=== PATIENT | male | born 1940 | race Caucasian/White ===

== ENCOUNTER → 2023-08-01 11:18 | Outpatient (REF) | payer MEDICARE, BC, SELFPAY ==
[2023-08-01 12:28] LABS: Blood Urea Nitrogen 13 mg/dl (9-20); Calcium 9.1 mg/dl (8.4-10.2); Carbon Dioxide 31 mmol/L (22-30); Chloride 98 mmol/L (98-107); Glucose 201 mg/dl (70-99); Potassium 3.9 mmol/L (3.5-5.1); Sodium 133 mmol/L (135-145); eGFR > 60.00
[2023-08-01 13:11] LABS: Glycohemoglobin (HgbA1c) 8.7 % (4.0-5.6)
== END ==
LOC: OLABN 11:18
PROVIDERS: ATTENDING PHYSICIAN Student in an Organized Health Care Education/Training Program
DX: E11.65 Type 2 diabetes mellitus with hyperglycemia (principal)
CPT/HCPCS: 36415; 80048; 83036

== ENCOUNTER → 2024-01-24 12:07 | Outpatient (REF) | payer MEDICARE, BC, SELFPAY ==
[2024-01-25 09:08] LABS: Glycohemoglobin (HgbA1c) 10.5 % (4.0-5.6)
== END ==
LOC: OLABN 12:07
PROVIDERS: ATTENDING PHYSICIAN Student in an Organized Health Care Education/Training Program
DX: E11.65 Type 2 diabetes mellitus with hyperglycemia (principal)
CPT/HCPCS: 36415; 83036

== ENCOUNTER → 2024-03-30 11:42 | Outpatient (REF) | payer MEDICARE, BC, SELFPAY ==
[2024-03-30 13:10] LABS: Urine Albumin 2+ (Neg - Trace); Urine Bilirubin Negative (Negative); Urine Character Very Cloudy (Clear); Urine Color Amber; Urine Glucose 3+ (Negative); Urine Ketone 1+ (Negative); Urine Leukocyte 2+ (Negative); Urine Nitrite Positive (Negative); Urine Occult Blood 4+ (Negative); Urine Specific Gravity 1.015 (<1.030); Urine Urobilinogen Negative (Neg - 1+)
[2024-03-30 13:23] LABS: Urine Bacteria Many (Negative); Urine Red Blood Cell 30-40 /HPF (0-2); Urine White Cell 60-70 /HPF (0-5)
== END ==
LOC: OLABN 11:42
PROVIDERS: ATTENDING PHYSICIAN Student in an Organized Health Care Education/Training Program
DX: R30.9 Painful micturition, unspecified (principal)
CPT/HCPCS: 81003; 81015; 87077; 87086; 87186

== ENCOUNTER 2024-04-01 21:21 | Inpatient (IN) | payer MEDICARE, BC, SELFPAY ==
[2024-04-01] VITALS (9 sets, daily range): BP systolic 98–142; BP diastolic 64–76
[2024-04-01 19:18] LABS: % Basophils 0.8 % (0-2); % Immature Granulocytes 0.3 % (0-0.5); % Lymphocytes 8.8 % (20.5-51.1); % Monocytes 6.5 % (1.7-9.3); % Neutrophils 81.6 % (42.2-75.2); Absolute Basophils 0.2 10^3/uL (0-0.2); Absolute Eosinophils 0.4 10^3/uL (0-0.7); Absolute Immature Granulocytes 0.1 10^3/uL (0-0.05); Absolute Lymphocytes 1.9 10^3/uL (1.2-3.4); Absolute Monocytes 1.4 10^3/uL (0.1-0.6); Absolute Neutrophils 17.3 10^3/uL (1.4-6.5); Hematocrit 44.4 % (39.0-52.0); Hemoglobin 14.3 g/dL (13.0-18.0); Mean Corp Hgb Conc. 32.2 g/dL (33.0-37.0); Mean Corpuscular Hgb 28.1 pg (27.0-31.0); Mean Corpuscular Volume 87.4 fL (80.0-94.0); Mean Platelet Volume 10.2 fL (7.4-10.4); Nucleated Red Blood Cells % 0 % (-); Platelet Count 520 10^3/uL (130-400); Red Blood Cell Count 5.08 10^6/uL (4.70-6.10); Red Cell Dist. Width 15.4 % (11.5-14.5); White Blood Cell Count 21.2 10^3/uL (4.8-10.8)
[2024-04-01] MEDS: NSS 1700 ML IV (19:18)
[2024-04-01] MEDS: TYLENOL/FEVERALL 650 MG RECTAL (19:20)
--- NOTE | 2024-04-01 19:22 | ED.GENMED ---
History of Present Illness
<Maria C Shannon, EXECUTIVE ASSISTANT TO PRESIDENT - Last Filed: 04/01/24 21:43>
General
Chief Complaint: Fever
Source: spouse, family and intermediate records
Exam Limitations: clinical condition and altered mental status
Time Seen by Provider: 04/01/24 19:09
History of Present Illness
History of Present Illness:
83 yo male from [facility] for change in mental state and inability to take his po antibiotics for his UTI. Pt w h/o dementia, IDDM, NH records state his urine culture came back positive for <100,000 e coli and order for Nitrofurantoin 100 BID
given but staff unable to give due to significant change in mental state/lethargy.
Pt presents lethargic and unable to give history
Past History
<Maria C Shannon, EXECUTIVE ASSISTANT TO PRESIDENT - Last Filed: 04/01/24 21:43>
Past History
ED Past Medical History: HTN, NIDDM, Seizures and Other (Dementia)
ED Past Surgical History: Appendectomy and Other
Social History
Tobacco: Non-smoker
Alcohol: None
Personal:
Living: intermediate
Employment: Retired
Review of Systems
<Maria C Shannon, EXECUTIVE ASSISTANT TO PRESIDENT - Last Filed: 04/01/24 21:43>
Review of Systems
Allergies reviewed?: Yes
Unable to obtain full review of systems at this time due to: due to acuity
Other source history: family and intermediate
All Other Systems: ROS reviewed and negative except as documented in HPI and ROS
Constitutional: Reports fever
Respiratory: Denies trouble breathing
ABD/GI: Denies diarrhea
: Reports other (UTI)
Musculoskeletal: Denies edema
Skin: Reports no symptoms
Phy Exam
<Maria C Shannon, EXECUTIVE ASSISTANT TO PRESIDENT - Last Filed: 04/01/24 21:43>
Physical Exam
Physical Exam:
GENERAL: Lethargic, unable to give information.
CONSTITUTIONAL: Temp 102.7 R
EYES: PERRL, conjunctivae normal
ENMT: dry mucus membranes
RESPIRATORY: Regular respirations, nonlabored, lungs clear. Coarse junky cough, upper airway gurgling
CARDIOVASCULAR: Regular rate and rhythm, no murmurs, no rubs.
GI: Soft, nontender, normal BS
MUSCULOSKELETAL: Well perfused. No edema
SKIN: Warm, dry, pale
PSYCH:Lethargic. Non verbal, moaning
NEUROLOGIC: Lethargic, does not follow commands, winces and moans with straight catheterization
Sepsis
<Maria C Shannon, EXECUTIVE ASSISTANT TO PRESIDENT - Last Filed: 04/01/24 21:43>
Sepsis Screening
Sepsis Assessment: Sepsis
Sepsis Screen
Sepsis Screen: Sepsis
Date: 04/01/24
Time: 21:42
Course
<Maria C Shannon, EXECUTIVE ASSISTANT TO PRESIDENT - Last Filed: 04/01/24 21:43>
Orders/Labs/Results
Orders:
Orders
04/01/24 19:06
EKG [Electrocardiogram (*1)] Urgent
Reason for Study: Tachycardia
EKG- Treatment ONCE
Urinalysis Reflex To Culture Urgent
Date Specimen was Collected: 04/01/24
Time Specimen was Collected: 19:06
04/01/24 19:09
Complete Blood Count/With Diff Urgent
Comprehensive Metabolic Panel Urgent
Lactic Acid Urgent
04/01/24 19:10
Acetaminophen [Tylenol/Feverall] 650 mg RECTAL NOW STA
04/01/24 19:11
0.9% Sodium Chloride 1000 ml [Nss] 1,700 ml IV NOW STA
04/01/24 19:13
CR Chest Portable - 1 View Urgent
Comment:
Reason For Exam: fever, tachy, change in MS
Reason Study Needs to be Portable: Patient Unstable
04/01/24 19:35
Blood Culture Urgent
MAIRA Source: Blood/Venous
Specimen Description:
Blood Culture Urgent
MAIRA Source: Blood/Venous
Specimen Description:
04/01/24 19:43
CefTRIAXone [Rocephin] 1,000 mg IV NOW STA
04/01/24 20:04
Bedside Glucose- Treatment Q1H
IV Insert/Care/Rem.- Treatment PRN
Insulin Human Regular [Novolin R] 6 units IV NOW STA
04/01/24 20:07
Bedside Glucose- Treatment Q1H
IV Insert/Care/Rem.- Treatment PRN
Reg Insulin 100 Units/100 ml [Novolin R Insulin Infusion] 100 units in 100 ml IV NOW
04/01/24 20:34
BHB [B-Hydroxybutyrate] Urgent
Basic Metabolic Panel Q2H
04/01/24 20:39
Add On- LAB Urgent
Tests Added?: B-hydroxy
04/01/24 20:58
Admit/Transfer Patient As Directed
Co-Sign Provider:
Level of Care: Inpatient admission
Assign to:: ICU
Physician / Group: htay
Diagnosis: DKA, HHC, TME, Hyperkae,ia, Hi AG MA, Sepsis
Reason for Hospitalization: DKA plus hyperosmolar hyprglycemic crisis
Hi AG MA @ 24
Hyperkalemia due to sever memetabolic acidosis
Svere hypernatremia with FWD 3.5 L
Mahad Sr Osm 362
POS hypoactive TME 2/2 to DKA, HHC and sepsis due to UTI
Expected length of stay greater than two midnights?: Yes
ELOS- Estimated Length of Stay in days: 5
I certify the patient meets the requirements for IP care: Yes
04/01/24 21:00
Code Status As Directed
Resuscitation Status: Do not resuscitate
Based on pt advanced directive or healthcare POA form: Yes
DNR Bracelet Application ONCE
04/01/24 22:00
Flush (0.9% Sodium Chloride) [Flush (Nss)] See Dose Instructions IV PER PROTOCOL
04/02/24 00:15
Basic Metabolic Panel Q2H
Abnormal Lab Results
04/01/24 04/01/24 04/01/24
19:09 20:34 21:06
WBC 21.2 H 10^3/uL
(4.8-10.8)
MCHC 32.2 L g/dL
(33.0-37.0)
RDW 15.4 H %
(11.5-14.5)
Plt Count 520 H 10^3/uL
(130-400)
Abs Immat Gran (auto) 0.1 H 10^3/uL
(0-0.05)
Absolute Neuts (auto) 17.3 H 10^3/uL
(1.4-6.5)
Absolute Monos (auto) 1.4 H 10^3/uL
(0.1-0.6)
Neutrophils % 81.6 H %
(42.2-75.2)
Lymphocytes % 8.8 L %
(20.5-51.1)
Sodium 157 H mmol/L 155 H mmol/L
(135-145) (135-145)
Potassium 5.8 H mmol/L
(3.5-5.1)
Chloride 113 H mmol/L 119 H mmol/L
(98-107) (98-107)
Carbon Dioxide 18 L mmol/L 17 L mmol/L
(22-30) (22-30)
BUN 60 H mg/dl 51 H mg/dl
(9-20) (9-20)
Glucose 477 H* mg/dl 401 H mg/dl
(70-99) (70-99)
Calcium 7.9 L D mg/dl
(8.4-10.2)
B-Hydroxybutyrate 3.83 H mmol/L
(0.02-0.27)
POC Glucose 381 H mg/dl
(70-99)
04/01/24 19:09
04/01/24 20:34
Vital Signs
Initial and Last Documented VS:
Initial Vital Signs
Temp Pulse Resp BP Pulse Ox
102.7 F H 130 17 137/73 98
04/01/24 18:55 04/01/24 18:55 04/01/24 18:55 04/01/24 18:55 04/01/24 18:55
Last Documented Vital Signs
Temp Pulse Resp BP Pulse Ox
102.7 F H 120 16 132/76 97
04/01/24 18:55 04/01/24 20:15 04/01/24 20:15 04/01/24 20:00 04/01/24 20:15
<Connie Luna MD - Last Filed: 04/01/24 20:19>
Orders/Labs/Results
Orders:
Orders
04/01/24 19:06
EKG [Electrocardiogram (*1)] Urgent
Reason for Study: Tachycardia
EKG- Treatment ONCE
Urinalysis Reflex To Culture Urgent
Date Specimen was Collected: 04/01/24
Time Specimen was Collected: 19:06
04/01/24 19:09
Complete Blood Count/With Diff Urgent
Comprehensive Metabolic Panel Urgent
Lactic Acid Urgent
04/01/24 19:10
Acetaminophen [Tylenol/Feverall] 650 mg RECTAL NOW STA
04/01/24 19:11
0.9% Sodium Chloride 1000 ml [Nss] 1,700 ml IV NOW STA
04/01/24 19:13
CR Chest Portable - 1 View Urgent
Comment:
Reason For Exam: fever, tachy, change in MS
Reason Study Needs to be Portable: Patient Unstable
04/01/24 19:35
Blood Culture Urgent
MAIRA Source: Blood/Venous
Specimen Description:
Blood Culture Urgent
MAIRA Source: Blood/Venous
Specimen Description:
04/01/24 19:43
CefTRIAXone [Rocephin] 1,000 mg IV NOW STA
04/01/24 20:04
Bedside Glucose- Treatment Q1H
IV Insert/Care/Rem.- Treatment PRN
Insulin Human Regular [Novolin R] 6 units IV NOW STA
04/01/24 20:07
Bedside Glucose- Treatment Q1H
IV Insert/Care/Rem.- Treatment PRN
Reg Insulin 100 Units/100 ml [Novolin R Insulin Infusion] 100 units in 100 ml IV NOW
04/01/24 20:34
BHB [B-Hydroxybutyrate] Urgent
Basic Metabolic Panel Q2H
04/01/24 20:39
Add On- LAB Urgent
Tests Added?: B-hydroxy
04/01/24 20:58
Admit/Transfer Patient As Directed
Co-Sign Provider:
Level of Care: Inpatient admission
Assign to:: ICU
Physician / Group: htay
Diagnosis: DKA, HHC, TME, Hyperkae,ia, Hi AG MA, Sepsis
Reason for Hospitalization: DKA plus hyperosmolar hyprglycemic crisis
Hi AG MA @ 24
Hyperkalemia due to sever memetabolic acidosis
Svere hypernatremia with FWD 3.5 L
Mahad Sr Osm 362
POS hypoactive TME 2/2 to DKA, HHC and sepsis due to UTI
Expected length of stay greater than two midnights?: Yes
ELOS- Estimated Length of Stay in days: 5
I certify the patient meets the requirements for IP care: Yes
04/01/24 21:00
Code Status As Directed
Resuscitation Status: Do not resuscitate
Based on pt advanced directive or healthcare POA form: Yes
DNR Bracelet Application ONCE
04/01/24 22:00
Flush (0.9% Sodium Chloride) [Flush (Nss)] See Dose Instructions IV PER PROTOCOL
04/02/24 00:15
Basic Metabolic Panel Q2H
Abnormal Lab Results
04/01/24 04/01/24 04/01/24
19:09 20:34 21:06
WBC 21.2 H 10^3/uL
(4.8-10.8)
MCHC 32.2 L g/dL
(33.0-37.0)
RDW 15.4 H %
(11.5-14.5)
Plt Count 520 H 10^3/uL
(130-400)
Abs Immat Gran (auto) 0.1 H 10^3/uL
(0-0.05)
Absolute Neuts (auto) 17.3 H 10^3/uL
(1.4-6.5)
Absolute Monos (auto) 1.4 H 10^3/uL
(0.1-0.6)
Neutrophils % 81.6 H %
(42.2-75.2)
Lymphocytes % 8.8 L %
(20.5-51.1)
Sodium 157 H mmol/L 155 H mmol/L
(135-145) (135-145)
Potassium 5.8 H mmol/L
(3.5-5.1)
Chloride 113 H mmol/L 119 H mmol/L
(98-107) (98-107)
Carbon Dioxide 18 L mmol/L 17 L mmol/L
(22-30) (22-30)
BUN 60 H mg/dl 51 H mg/dl
(9-20) (9-20)
Glucose 477 H* mg/dl 401 H mg/dl
(70-99) (70-99)
Calcium 7.9 L D mg/dl
(8.4-10.2)
B-Hydroxybutyrate 3.83 H mmol/L
(0.02-0.27)
POC Glucose 381 H mg/dl
(70-99)
04/01/24 19:09
04/01/24 20:34
Vital Signs
Initial and Last Documented VS:
Initial Vital Signs
Temp Pulse Resp BP Pulse Ox
102.7 F H 130 17 137/73 98
04/01/24 18:55 04/01/24 18:55 04/01/24 18:55 04/01/24 18:55 04/01/24 18:55
Last Documented Vital Signs
Temp Pulse Resp BP Pulse Ox
102.7 F H 120 16 132/76 97
04/01/24 18:55 04/01/24 20:15 04/01/24 20:15 04/01/24 20:00 04/01/24 20:15
<Maria C Shannon, EXECUTIVE ASSISTANT TO PRESIDENT - Last Filed: 04/01/24 21:43>
MDM/Problems Addressed
Differential Diagnosis Includes:
urosepsis, DKA, HHNK
MDM/Problems Addressed:
83 yo male from [facility] for change in mental state and inability to take his po antibiotics for his UTI. Pt w h/o dementia, IDDM, [place] records state his urine culture came back positive for <100,000 e coli and order for Nitrofurantoin 100 BID
given but staff unable to give due to significant change in mental state/lethargy.
Pt presents lethargic and unable to give history
arrives, she is informed that he is septic and states she would like IV fluids and antibiotics as needed. She rescinded the DNR at [facility] but during this admission she would like Hospice consult and wants pt to be DNR.
EKG: sinus tachycardia
7:45 p.m.
CBC: WBC 21.2 w elevated neutrophils
CMP: Na 157, K+ 5.8, Cl 113, Bicarb 18, BUN 60, Glucose 477
Anion Gap 26
Lactic 1.8
Insulin and insulin drip ordered (discussed with and she agrees)
8:20 p.m.
Critical care statement: A total of 40 minutes of critical care time was provided for this patient. This includes management of unstable vital signs, evaluation of the patient at bedside, reviewing the patient's pertinent medical records, discussion
with consultants, review of old EKGs and review of pertinent medical records. This time with separate from time utilized to perform the aforementioned documented procedures
Plan: Admit to Hospitalist: DKA, Urosepsis. Hospice Consult, DNR
Hospitalist notified of admission
Chronic conditions affecting care: DM
<Maria C Shannon NP - Last Filed: 04/01/24 21:43>
*Pulse Oximetry
Patient hypoxic: no
Comment: 98% RA
*EKG
EKG Intrepretation Date: 04/01/24
Interpretation: abnormal
Heart Rate: 125
Rate: tachycardiac
Rhythm: sinus
Hays: normal axis
Interval: normal interval
QRS Pattern: normal QRS
Ischemia: no ischemia
*Critical Care Note
Total Time (30-74mins, 75-104mins- exclusive of procedures): Not Applicable
ED Attending Note
<Maria C Shannon NP - Last Filed: 04/01/24 21:43>
-
Portions of this chart may have been created with voice recognition software.� Occasional wrong word or��sound alike� substitutions may have occurred due to the inherent limitations of voice recognition software.
<Connie Luna MD - Last Filed: 04/01/24 20:19>
ED Attending Note
Patient seen and examined by attending physician: Yes
I performed the substantive portion of visit, reviewed & personally made and approve the management plan that is documented in note by myself or DANIEL.: Yes
ED Attending Note:
82 yo male presents from me with increased lethargy. hx very limited from pt, moaning, moderately responsive. On exam, ketotic breath noted, tachypnea, tachycardia but RRR, scattered rhonchi on exam. Abd soft and nontender. Findings c/w
urosepsis + DKA...insulin gtt, abx, ivf, etc. Family aware of severity of illness.
Discharge Plan
Departure
Patient Disposition: Admit
Date of Disposition: 04/01/24
Time of Disposition: 20:13
Admit to: ICU
Presentation/result/management discussed w/ accepting MD/DO: Hospitalist
Condition: Critical
Discharge Problem:
Sepsis, Acute UTI (urinary tract infection), DKA (diabetic ketoacidosis)
Interventions
Interventions:
*Risk Screen - Suicide Last Done: 04/01/24 18:55
*General Assessment Last Done: 04/01/24 18:55
*Neglect/Abuse Screening Last Done: 04/01/24 18:55
ED- Fall Risk Assessment Last Done: 04/01/24 18:55
*ED COVID-19 Vaccine History Last Done: 04/01/24 18:55
ED- Neurological Assessment Last Done: 04/01/24 19:39
ED-Skin Assessment Last Done: 04/01/24 19:39
[2024-04-01 19:39] LABS: Lactic Acid 1.8 mmol/L (0.7-2.0)
[2024-04-01 19:43] LABS: ALT (SGPT) 17 U/L (0-50); AST (SGOT) 18 U/L (17-59); Albumin 4.2 g/dl (3.5-5.0); Alkaline Phosphatase 110 U/L (38-126); Blood Urea Nitrogen 60 mg/dl (9-20); Calcium 9.7 mg/dl (8.4-10.2); Carbon Dioxide 18 mmol/L (22-30); Chloride 113 mmol/L (98-107); Glucose 477 mg/dl (70-99); Potassium 5.8 mmol/L (3.5-5.1); Sodium 157 mmol/L (135-145); Total Bilirubin 0.4 mg/dl (0.2-1.3); Total Protein 7.2 g/dl (6.3-8.2); eGFR > 60.00
[2024-04-01] MEDS: ROCEPHIN 1000 MG IV (19:48)
--- NOTE | 2024-04-01 20:53 | HPS.HSE ---
Family Physician
-
Family Physician: Lucio Dietrich DO
Chief Complaint
-
AMS
History of Present Illness
I could not get any information from the patient as
Information gathered by chart review and speaking with the ER staff.
HPI
83M [place] NH Res HX T2DM Dementia, Sz, seen at ER for AMS and unable to take PO ABx for UTI.
[facility] records : POS UCx for for <100,000 E Coli and order for Nitrofurantoin
Medical History
Past Medical History
Past Medical History: Reports HTN, Hypercholesterolemia, NIDDM, Seizures and Psychiatric
Past Surgical History: Reports Appendectomy
Social History
Tobacco: Non-smoker
Alcohol: None
Living: Jail
Family History
Family History: Not pertinent
Allergies / Home Medications
Allergies reflects when Allergies were last updated in [employer].
Home Medications with original date entered in [employer]
Allergy/Medication List:
Allergies
Allergy/AdvReac Type Severity Reaction Status Date / Time
Sulfa (Sulfonamide Allergy Unknown Verified 04/01/24 19:46
Antibiotics)
Home Medications
atorvastatin 10 mg tablet 20 mg PO QPM 10/31/21
metformin 1,000 mg tablet 1,000 mg PO BID 10/31/21
primidone 250 mg tablet 250 mg PO BID 10/31/21
sitagliptin phosphate 50 mg tablet (Januvia) 100 mg PO DAILY 10/31/21
acetaminophen 325 mg tablet (Tylenol) 650 mg PO HS 04/01/24
acetaminophen 325 mg tablet (Tylenol) 650 mg PO Q4HPRN PRN mild pain 04/01/24
bisacodyl 10 mg rectal suppository (Dulcolax (bisacodyl)) 10 mg GA [id number] PRN if no bm aftr mom 04/01/24
fexofenadine 180 mg tablet 180 mg PO DAILY 04/01/24
insulin glargine 100 unit/mL (3 mL) subcutaneous pen (Lantus Solostar U-100 Insulin) 5 unit SC HS 04/01/24
magnesium hydroxide 400 mg/5 mL oral suspension (Milk of Magnesia) 2,400 mg PO HSPRN PRN constipation 04/01/24
melatonin 3 mg tablet 6 mg PO HS 04/01/24
nitrofurantoin monohydrate/macrocrystals 100 mg capsule (Macrobid) 100 mg PO BID 04/01/24
polyethylene glycol 3350 17 gram oral powder packet (Miralax) 17 g PO DAILY 04/01/24
sennosides 8.6 mg-docusate sodium 50 mg tablet (Senna Plus) 2 tab-cap PO HS 04/01/24
vitamins A,C,C-ldvr-czmbfj 2,148 mcg-113 mg-45 mg-17.4 mg tablet (PreserVision AREDS) 1 tab PO BID 04/01/24
Review of Systems
-
Constitutional: Reports See HPI
EENT: Reports No Symptoms
Respiratory: Reports No Symptoms
Cardiac: Reports No Symptoms
Abdomen/GI: Reports No Symptoms
: Reports No Symptoms
Musculoskeletal: Reports No Symptoms
Skin: Reports No Symptoms
Neurological: Reports See HPI
Endocrine: Reports No Symptoms
Hematologic/Lymphatic: Reports No Symptoms
Psych: Reports No Symptoms
Physical Exam
Vital Signs
Vital Signs
Temp Pulse Resp BP Pulse Ox
102.7 F H 120 16 132/76 97
04/01/24 18:55 04/01/24 20:15 04/01/24 20:15 04/01/24 20:00 04/01/24 20:15
Physical Exam
General: No Apparent Distress
HEENT: NormoCephalic and Atraumatic
Respiratory: Clear
Cardiac: S1/S2, Regular Rhythm and Tachycardia; No Murmur or Rub
GI: Soft, Non Tender, Non Distended and Normal Bowel Sounds; No Organomegaly
Rectal: Deferred by Provider
Musculoskeletal: No Clubbing, No Cyanosis and No Edema
Skin: No Rash
Neuro: Nonfocal/grossly intact
Laboratory Results
-
04/01/24 19:09
04/01/24 22:15
Laboratory Results
Lactic Acid 1.8 mmol/L (0.7-2.0) 04/01/24 19:09
Total Bilirubin 0.4 mg/dl (0.2-1.3) 04/01/24 19:09
AST 18 U/L (17-59) 04/01/24 19:09
ALT 17 U/L (0-50) 04/01/24 19:09
Alkaline Phosphatase 110 U/L (38-126) 04/01/24 19:09
Data Reviewed
-
Diagnostic Radiology: Report Reviewed by me
Lab Data: Labs Reviewed by me
Impression/Plan
-
Data
WCC 21
Na 157
Cl 113
HCO3 18
BUN 60
Cr 1.1 eGFR > 60
BG 477
LA 1.8
Ca 9.7
nl LFTs
BCx 2 sent
CXR: Moderate elevation of the left hemidiaphragm. Stable
EKG:
SINUS TACHYCARDIA
OTHERWISE NORMAL ECG
WHEN COMPARED WITH ECG OF 01-NOV-2021 10:40,
ST NOW DEPRESSED IN INFERIOR LEADS
NONSPECIFIC T WAVE ABNORMALITY NOW EVIDENT IN INFERIOR LEADS
No prior hospitalist admission:
ASSESSMENT & PLAN
DKA with Hi AG MA @ 24
Coexisting hyperosmolar hyperglycemic crisis with calculated Sr Osm 362
Hyperkalemia due to sever m acidosis
Severe hypernatremia with FWD 3.5 L
Hypoactive obtunded TME 2/2 to DKA, HHC and sepsis due to UTI
HX T2DM
- check BHB
- Agree with insulin gtt
- Aggressive IVF: NS for now
- Tx UTI and sepsis
- BMP q3h
- NPO for aspiration precaution
- Hold Metformin, MOLD STAMPER Lantus and Januvia
- DM REFRIGERATION SERVICE INSPECTOR consult
UTI complicated with sepsis
POS E Coli UCX at NH
- UCx
- BCX
- IV CFTZ
Somewhat relative preserved renal function
HX advanced Dementia
HX Sz
- Hold all OP Meds due to aspiration precaution
Prognosis : guarded and life threading - spouse and sons aware. family is slanting towards comfort measures if patient does not make any progree over the time
DVT Px: SQH
DNR pw family at bed side
ICU
Total Critical Care Time__75___ minutes. I was immediately available to the patient and staff. I personally examined, reviewed labs, diagnostic images/reports, interpretations, treatment plans, discussed patient care with other providers and
family or caregivers (if patient is unable to make decisions), entered orders as appropriate and documented the medical record.
[2024-04-01 21:08] LABS: Glucose - Point of Care 381 mg/dl (70-99)
[2024-04-01] MEDS: NOVOLIN R 6 UNITS IV (21:10)
[2024-04-01] MEDS: NOVOLIN R INSULIN INFUSION 100 IV (21:11)
[2024-04-01] MEDS: FLUSH (NSS) 1 FLUSH IV (21:12)
[2024-04-01 21:16] LABS: Blood Urea Nitrogen 51 mg/dl (9-20); Calcium 7.9 mg/dl (8.4-10.2); Carbon Dioxide 17 mmol/L (22-30); Chloride 119 mmol/L (98-107); Glucose 401 mg/dl (70-99); Potassium 4.5 mmol/L (3.5-5.1); Sodium 155 mmol/L (135-145); eGFR > 60.00
[2024-04-01 21:18] LABS: B-Hydroxybutyrate 3.83 mmol/L (0.02-0.27)
[2024-04-01 22:22] LABS: Glucose - Point of Care 340 mg/dl (70-99)
--- NOTE | 2024-04-01 23:30 | PTCARENOTE ---
Addendum entered by Jerry Carpenter RN 04/02/24 01:55:
last BM 03/30
Original Note:
received report from MOLD HOISTER, pt brought up on insulin gtt DKA protocol followed, somnolent and lethargic sighing and moaning, withdraws to pain but unresponsive to voice, pupils 3 PERRLA, sinus tach on the monitor, + radials and doppler pedals no
edema, diminished and coarse throughout, 4L NC SATs 96%, report from harrison torres has last BM before 03/29 BSx4 hypoactive round belly, pt incontinent #25 CC draining carmita output, stage 1 scabbed pressure injury, blanchable sacral foam applied,
prophylactic heel foams, 18G LAC, 18G RFA, 0.45 NS 250ml per order, unable to verify admission information, left with ER nurse, bed alarm turned on, otherwise refer to documentation.
[2024-04-01] MEDS: 0.45%NACL 1000 IV (23:33)
[2024-04-01 23:37] LABS: Glucose - Point of Care 277 mg/dl (70-99)
[2024-04-02] VITALS (32 sets, daily range): BP systolic 98–143; BP diastolic 51–83; BMI 19.8
[2024-04-02 00:27] LABS: Urine Albumin 2+ (Neg - Trace); Urine Bilirubin 1+ (Negative); Urine Character Very Cloudy (Clear); Urine Color Amber; Urine Glucose 3+ (Negative); Urine Ketone 2+ (Negative); Urine Leukocyte 2+ (Negative); Urine Nitrite Positive (Negative); Urine Occult Blood 4+ (Negative); Urine Specific Gravity 1.025 (<1.030); Urine Urobilinogen Negative (Neg - 1+)
[2024-04-02 00:30] LABS: Glucose - Point of Care 252 mg/dl (70-99)
--- NOTE | 2024-04-02 01:00 | W.PN.SEPSIS ---
Sepsis
Vital Signs
Temp Pulse Resp BP Pulse Ox
100.5 F H 119 17 112/63 94
04/01/24 23:30 04/02/24 01:00 04/02/24 01:00 04/02/24 01:00 04/02/24 01:00
Physical Exam
Physical Exam:
A focused exam was performed after fluid resuscitation.
Capillary Refill
Bilateral Upper Extremity:
Benjamin Time: Less than 3 sec
Bilateral Lower Extremity:
Benjamin Time: Less than 3 sec
Pulse Evaluation
Bilateral Radial:
Pulse Evaluation: Present
Bilateral Dorsalis Pedis:
Pulse Evaluation: Present
[2024-04-02 01:01] LABS: Blood Urea Nitrogen 55 mg/dl (9-20); Estimated Creatinine Clearance 49 ml/min; Glucose 282 mg/dl (70-99); eGFR > 60.00
[2024-04-02 01:02] LABS: Calcium 9.2 mg/dl (8.4-10.2); Carbon Dioxide 25 mmol/L (22-30); Chloride 121 mmol/L (98-107); Magnesium 1.9 mg/dl (1.6-2.3); Potassium 4.2 mmol/L (3.5-5.1); Sodium 161 mmol/L (135-145)
[2024-04-02 01:22] LABS: Glucose - Point of Care 212 mg/dl (70-99)
[2024-04-02] MEDS: KCL 1010 MEQ IV ×2 (02:22→09:53)
[2024-04-02 02:29] LABS: Glucose - Point of Care 208 mg/dl (70-99)
[2024-04-02 03:08] LABS: Urine Amorphous Seen; Urine Bacteria Many (Negative); Urine Mucus Many; Urine Squamous Cell >30 /LPF (Few); Urine White Cell >100 /HPF (0-5)
[2024-04-02 03:35] LABS: Glucose - Point of Care 204 mg/dl (70-99)
[2024-04-02 04:19] LABS: Hematocrit 40.1 % (39.0-52.0); Hemoglobin 12.9 g/dL (13.0-18.0); Mean Corp Hgb Conc. 32.2 g/dL (33.0-37.0); Mean Corpuscular Hgb 28.8 pg (27.0-31.0); Mean Corpuscular Volume 89.5 fL (80.0-94.0); Mean Platelet Volume 10.4 fL (7.4-10.4); Platelet Count 424 10^3/uL (130-400); Red Blood Cell Count 4.48 10^6/uL (4.70-6.10); Red Cell Dist. Width 15.3 % (11.5-14.5)
[2024-04-02 04:20] LABS: Glucose - Point of Care 218 mg/dl (70-99)
--- NOTE | 2024-04-02 04:30 | PTCARENOTE ---
systems reviewed, critical lab NA 161 PHOTOVOLTAIC SOLAR CELL DESIGNER notified, 0.45 NS changed to D5 0.225 NS 20 meq K @ 150ml per order, insulin gtt titrated per worklist, pt continually sighing and moaning, occasionally opens one eye but doesn't respond to voice, when care
is provide he will attempt to push away, mouth breather not really clearing secretions, suctioned when necessary, otherwise refer to documentation
[2024-04-02 04:31] LABS: Lactic Acid 1.9 mmol/L (0.7-2.0)
[2024-04-02 04:42] LABS: Blood Urea Nitrogen 47 mg/dl (9-20); Calcium 9.3 mg/dl (8.4-10.2); Carbon Dioxide 25 mmol/L (22-30); Chloride 118 mmol/L (98-107); Estimated Creatinine Clearance 55 ml/min; Glucose 219 mg/dl (70-99); Magnesium 1.9 mg/dl (1.6-2.3); Phosphorus 2.4 mg/dl (2.5-4.5); Potassium 4.3 mmol/L (3.5-5.1); Sodium 156 mmol/L (135-145); eGFR > 60.00
[2024-04-02 05:50] LABS: Glucose - Point of Care 203 mg/dl (70-99)
[2024-04-02 06:47] LABS: Glucose - Point of Care 227 mg/dl (70-99)
[2024-04-02] MEDS: HEPARIN 5000 UNITS SC (07:40)
--- NOTE | 2024-04-02 07:43 | CON.INTV ---
Consultation
Consultation Request
Date/Time Consultation Requested: 04/02/2024-7 AM
Date/Time Consultation Performed: 04/02/2024-7:30 AM
Requesting Provider: Hospitalist
Performing Provider: Dr. Carlos
Reason for Consultation: Sepsis/critical care management
Medical History
-
Chief Complaint: Sepsis
History of Present Illness:
83-year-old male with a history of dementia, seizures, diabetes, hypertension who was recently found to have a UTI and presents with sepsis and DKA-insurance verifier consulted for septic shock/DKA/critical care management 04/02/2024. The patient is
quite lethargic and review of systems was unobtainable. He is in no respiratory distress.
Past Medical History
Past Medical History: None (Hypertension. Hyperlipidemia. Diabetes. Dementia. Seizures. Appendectomy.)
Social History
Tobacco: Former Smoker (Former pipe smoker)
Alcohol: None
Drug: None
Living: Custodial
Occupational Exposures: No known asbestos exposure
Environmental Exposures: No known tuberculosis exposure
Family History
Family History: Reviewed & Not Pertinent (Older sister with short-term memory loss)
Allergies / Home Medications
Allergies
Allergy/AdvReac Type Severity Reaction Status Date / Time
Sulfa (Sulfonamide Allergy Unknown Verified 04/01/24 19:46
Antibiotics)
Home Medications
�Medication �Instructions �Recorded �Confirmed �Last Taken �Type
atorvastatin 10 mg tablet 20 mg PO QPM 10/31/21 04/01/24 Unknown History
metformin 1,000 mg tablet 1,000 mg PO BID 10/31/21 04/01/24 Unknown History
primidone 250 mg tablet 250 mg PO BID 10/31/21 04/01/24 Unknown History
sitagliptin phosphate 50 mg tablet 100 mg PO DAILY 10/31/21 04/01/24 Unknown History
(Januvia)
acetaminophen 325 mg tablet 650 mg PO HS 04/01/24 04/01/24 Unknown History
(Tylenol)
acetaminophen 325 mg tablet 650 mg PO Q4HPRN PRN mild pain 04/01/24 04/01/24 Unknown History
(Tylenol)
bisacodyl 10 mg rectal suppository 10 mg AL [id number] PRN if no bm aftr 04/01/24 04/01/24 Unknown History
(Dulcolax (bisacodyl)) mom
fexofenadine 180 mg tablet 180 mg PO DAILY 04/01/24 04/01/24 Unknown History
insulin glargine 100 unit/mL (3 5 unit SC HS 04/01/24 04/01/24 Unknown History
mL) subcutaneous pen (Lantus
Solostar U-100 Insulin)
magnesium hydroxide 400 mg/5 mL 2,400 mg PO HSPRN PRN constipation 04/01/24 04/01/24 Unknown History
oral suspension (Milk of Magnesia)
melatonin 3 mg tablet 6 mg PO HS 04/01/24 04/01/24 Unknown History
nitrofurantoin 100 mg PO BID 04/01/24 04/01/24 Unknown History
monohydrate/macrocrystals 100 mg
capsule (Macrobid)
polyethylene glycol 3350 17 gram 17 g PO DAILY 04/01/24 04/01/24 Unknown History
oral powder packet (Miralax)
sennosides 8.6 mg-docusate sodium 2 tab-cap PO HS 04/01/24 04/01/24 Unknown History
50 mg tablet (Senna Plus)
vitamins A,C,Y-ujoe-eehtqa 2,148 1 tab PO BID 04/01/24 04/01/24 Unknown History
mcg-113 mg-45 mg-17.4 mg tablet
(PreserVision AREDS)
Review of Systems
-
Unable to Obtain full review of systems at this time due to: Patient Non Verbal
Vitals / Labs / Diagnostic Testing
Vital Signs
Temp Pulse Resp BP Pulse Ox
100.3 F 117 18 116/73 94
04/02/24 07:16 04/02/24 04:00 04/02/24 04:00 04/02/24 04:00 04/02/24 07:16
Lab Data
04/02/24 04:09
Diagnostic Testing:
Assessment
-
83-year-old male with a history of dementia, seizures, diabetes, hypertension who was recently found to have a UTI and presents with sepsis and DKA-insurance verifier consulted for septic shock/DKA/critical care management 04/02/2024.
Sepsis with shock unresponsive to fluids requiring pressors
UTI-E. coli-resistant to ampicillin and Bactrim
DKA
Leukocytosis-WBC 21.2
Mild ogcuio-oavdhdcrgf-uhsauimkop 12.9
Thrombocytosis-platelet 520
Hypernatremia-sodium 156
DNR
Conditions present prior to admission:
Hypertension.
Hyperlipidemia.
Diabetes.
Dementia.
Seizures.
Appendectomy.
Plan
Admit patient to medical intensive care unit for persistent hypotension despite fluid resuscitation requiring pressors
Supplement oxygen as needed
High flow oxygen if needed
BiPAP if necessary
Patient to DNR-DO NOT INTUBATE
Aspiration precautions
Nebulizers if needed
Obtain cultures
Urine culture from 03/30/2024-E. coli-resistant to ampicillin and Bactrim
Empiric antibiotics
Consider Infectious disease consultation
Monitor leukocytosis
Fluid resuscitation with 30 mL/kg crystalloid-preferably lactated ringer-(less VITALIY) with subsequent boluses as needed
Monitor lactate
Follow CVP if possible
Attempt noninvasive bedside tissue perfusion evaluation to see if fluid bolus responsive
Measure pulse pressure and stroke volume variation if patient on ventilator, passively breathing without arrhythmia and with temporary large tidal volume ventilation and if > 13% then likely fluid bolus responsive
If patient active then consider measuring bedside leg lift for 3 minutes and if cardiac output increases or if there is a rise of 2-4 on end-tidal CO2 then fluid bolus
If bedside ultrasound available then measure IVC diameter variation to evaluate for fluid bolus responsiveness
Begin pressors as needed for MAP goal of 65-Norepinephrine first, then Vasopressin and consider Angiotensin II if continues to be hypotensive
Consider methylene blue if available-specific inhibitor of induced nitric oxide synthase iNOS and its downstream enzyme soluble guanylate cyclase-noninferiority study shown to reduce time to vasopressor discontinuation, decreased ICU length of stay,
hospital stay but no change in mortality-published Critical Care 08/30/2022
If persistently hypotensive then consider checking random cortisol-hydrocortisone if random less than 3, if 3-15 then consider ACTH stimulation test
If persistently hyperthermic then correcting hyperthermia can decrease pressor requirements, increased chances of reversal of shock and decrease mortality
Monitor blood sugar
Monitor anion gap
Insulin drip
Check A1c if not done in the last 3 months
Diabetic nurse practitioner consultation
Intravenous fluid resuscitation
Monitor potassium closely and replace appropriately
DVT prophylaxis
Early nutrition if possible
Early mobilization/bedside range of motion
Critical care statement: A total of 55 minutes of critical care time was provided for this patient today. This includes management of unstable vital signs, evaluation of the patient at bedside, reviewing the patient's pertinent medical records
including radiographs, insulin drip management, pressor management, sepsis management, microbiology, laboratory evaluations, and discussion with primary team, consultants, pharmacy, nutrition, physical therapy, case management, charge nurse,
critical care nursing, and respiratory therapy.
Diagnostic data:
Chest x-ray 10/31/2021-NAD, stable elevation of left hemidiaphragm
Chest x-ray 04/01/2024-moderate stable elevation of left hemidiaphragm
CT head 03/03/2023-no acute abnormalities
Data Reviewed
-
Radiology: Image personally visualized and interpreted and Report reviewed by me
CT Scan: Report reviewed by me
Medical Tests (Nuc Med, Echo etc): Report reviewed by me
Labs: Labs reviewed by me
Old Records: Reviewed
Critical Care Time (in minutes): 55
[2024-04-02 07:48] LABS: Glucose - Point of Care 237 mg/dl (70-99)
--- NOTE | 2024-04-02 08:00 | PTCARENOTE ---
Received pt. @ change of shift; lethargic; does not open eyes spontaneously/follow commands; localizes painful stimuli. Baseline cognitive impairment. PERRLA, 3mm/brisk. ST on monitor. SpO2 94% on RA. [employer] moist occasional cough. Auscultated coarse
breath sounds w scattered rhonchi. Hypoactive BS, abd soft/round/distended; constipated. Strict NPO maintained. Inc bladder; #25 CC w carmita urine in place. Sacral/heel foams intact. Pt. repositioned per protocol. #18 R FA w insulin gtt- titrated
per orders- see flow sheet; q1H accucheck maintained. #18 L AC w D51/4 nSS w KCL 20mew @ 150mL/hr infusing. AM blood work sent to lab. Bed alarm active. Safe environment maintained.
--- NOTE | 2024-04-02 08:06 | PN.DE.MGMTRT ---
Insulin Management
- -
04/02/2024: Diabetes Management Consult
83 year old male with PMH: Dementia, Seizure and T2DM. Pt presented to ED from [facility] for AMS and unable to take PO ABx for UTI.
ID records : POS UCx for for <100,000 E Coli and order for Nitrofurantoin. Pt ubale to interview, information obtained from chart review.
Prior to admission, was taking Lantus 5 units @ HS, Metformin 100mg BID and Januvia 100mg daily
Current A1C 10.5%, Cr 0.6, eGFR >60
Pt is lethargic, does not open eyes, unable to discuss diabetes mgt at this time. Noted for cognitive impairment at baseline.
He is currently on DKA protocol, Noted for hyperglycemia, glucose range 203 to 237, requiring 3 units of insulin/hr.
GAP remains open but improving, last BMP was 12.
Discussed with ICU team and Nurse, cont DKA protocol until GAP has closed x2 BMPs, then will transition to [facility] if needed.
Family considering comfort care/ Hospice. Will follow closely.
Diabetes History
- -
Type of Diabetes: 2 requiring insulin
Pre-Admission Diabetes Regimen
04/01/24 04/01/24 04/01/24
19:09 20:34 22:15
Creatinine 1.1 0.9 Cancelled
04/02/24 04/02/24
00:15 04:09
Creatinine 0.9 0.8
Insulin Pump Settings
IP Diabetes Regimen
04/01/24 04/01/24 04/01/24
19:09 20:34 21:06
Glucose 477 H* 401 H
POC Glucose 381 H
04/01/24 04/01/24 04/01/24
22:15 22:20 23:26
Glucose Cancelled
POC Glucose 340 H 277 H
04/02/24 04/02/24 04/02/24
00:15 00:19 01:11
Glucose 282 H
POC Glucose 252 H 212 H
04/02/24 04/02/24 04/02/24
02:17 03:23 04:08
Glucose
POC Glucose 208 H 204 H 218 H
04/02/24 04/02/24 04/02/24
04:09 05:39 06:36
Glucose 219 H
POC Glucose 203 H 227 H
04/02/24
07:35
Glucose
POC Glucose 237 H
Patient Education
[2024-04-02 08:42] LABS: Glucose - Point of Care 225 mg/dl (70-99)
[2024-04-02 08:50] LABS: Blood Urea Nitrogen 41 mg/dl (9-20); Carbon Dioxide 26 mmol/L (22-30); Chloride 117 mmol/L (98-107); Estimated Creatinine Clearance 73 ml/min; Glucose 235 mg/dl (70-99); Potassium 4.5 mmol/L (3.5-5.1); Sodium 155 mmol/L (135-145); eGFR > 60.00
--- NOTE | 2024-04-02 09:43 | W.PN.HOSP.TC ---
Today's Communication/Plan
-
Continue with antibiotics ceftriaxone. Continue with IV fluids.
Transition to subcutaneous insulin.
Transfer to IMU.
Assessment / Plan
Assessment / Plan
Change in mental status secondary to acute toxic metabolic encephalopathy. Continue with treatments and assess response.
UTI with E. coli-patient was septic on admission. Await culture data from admission. Blood pressure stable. Continue ceftriaxone.
Possible DKA-patient presented with the significant elevation of blood sugars with the increased anion gap. Beta extubate requested close significant elevated. Patient is known diabetic on insulin. Currently patient on insulin infusion. Anion
gap is closed. Will switch to subcutaneous insulin today. Diabetic nurse practitioner consulted. Await hemoglobin A1c.
Known diabetic-on insulin. Hold metformin and Januvia. Await insulin to be transitioned to subcutaneous.
Hypernatremia-secondary to fluid deficits from DKA and possibly poor oral intake. Improving. Continue with IV fluids.
Hyperlipidemia-continue with statins when taking p.o.'s.
Dementia-continue supportive care
DNR.
Discussed with RN.
Discussed with .
Total time spent on today's encounter was 52 minutes which included time spent in counseling the patient/family regarding diagnosis and treatment plan as listed above, goals of care, and symptom management. Case was discussed with nursing staff,
specialists, and care coordinators/case management. All labs and imaging personally reviewed by me. Remainder the time spent in detailed review of previous records, lab data, imaging, and other medical provider documentation.
Anticipated Discharge: > 48 hours
Subjective/Interval History
-
Date of Service: April 02, 2024
Patient with lethargy ; patient localizes the pain.
Objective Data
-
Labs:
Laboratory Results
04/02/24 04/02/24 04/02/24
00:15 04:09 07:54
WBC 20.0 H
Hgb 12.9 L
Hct 40.1
Plt Count 424 H
Sodium 161 H* 156 H 155 H
Potassium 4.2 4.3 4.5
Chloride 121 H 118 H 117 H
Carbon Dioxide 25 25 26
BUN 55 H 47 H 41 H
Creatinine 0.9 0.8 0.6 L
Glucose 282 H 219 H 235 H
Calcium 9.2 9.3 9.0
04/02/24 04/02/24 04/02/24
12:00 16:00 20:00
WBC
Hgb
Hct
Plt Count
Sodium Pending Pending Pending
Potassium Pending Pending Pending
Chloride Pending Pending Pending
Carbon Dioxide Pending Pending Pending
BUN Pending Pending Pending
Creatinine Pending Pending Pending
Glucose Pending Pending Pending
Calcium Pending Pending Pending
Vital Signs:
Vital Signs
Temp Pulse Resp BP Pulse Ox
100.3 F 114 16 121/69 94
04/02/24 07:16 04/02/24 08:30 04/02/24 08:30 04/02/24 08:30 04/02/24 08:30
I&O
04/01/24 04/02/24 04/03/24
06:59 06:59 06:59
Intake Total 1450 / 1450
Output Total 405 / 405
Balance 1045 / 1045
Review of Systems
-
Unable to obtain full review of systems at this time due to: Dementia (Due to current mentation status)
Physical Exam
-
General: No Apparent Distress
HEENT: Negative Moist Mucous Membranes
Respiratory: Clear to Auscultation (Anteriorly)
Cardiac: Regular Rhythm, S1/S2 and Tachycardic
GI: Soft, Nondistended and Normal Bowel Sounds
Neuro: Negative Awake (Responsive to painful stimuli), No Motor Deficits (Difficult to assess but moves all 4 limbs. Tone is normal in all limbs.) or Tremors
Psych: Calm
Data Reviewed
-
Labs: Labs Reviewed by me
[2024-04-02 09:46] LABS: Glucose - Point of Care 220 mg/dl (70-99)
[2024-04-02 10:44] LABS: Glucose - Point of Care 184 mg/dl (70-99)
[2024-04-02 11:02] LABS: Glycohemoglobin (HgbA1c) 10.7 % (4.0-5.6)
[2024-04-02 11:58] LABS: Glucose - Point of Care 233 mg/dl (70-99)
--- NOTE | 2024-04-02 12:20 | PTCARENOTE ---
pt. reassessed, pt. opens eyes spontaneously @ x's; no tracking/not following commands; otherwise assessment unchanged. Remains on IVF and insulin gtt- titrated per orders- see flow sheet; q1h accuchecks maintained- . In contact w Felipa JENKINS,
plan to keep insulin gtt on until gap closed (<10) x2 . 1200 BMP drawn and sent to lab. Family @ bedside updated. Safe environment maintained.
[2024-04-02 12:34] LABS: Blood Urea Nitrogen 34 mg/dl (9-20); Calcium 8.6 mg/dl (8.4-10.2); Carbon Dioxide 24 mmol/L (22-30); Chloride 118 mmol/L (98-107); Estimated Creatinine Clearance 73 ml/min; Glucose 219 mg/dl (70-99); Potassium 4.3 mmol/L (3.5-5.1); Sodium 154 mmol/L (135-145); eGFR > 60.00
[2024-04-02 12:45] LABS: Glucose - Point of Care 200 mg/dl (70-99)
--- NOTE | 2024-04-02 13:07 | W.PN.UPDATE ---
Update Note
Progress Note Update
Reevaluated the patient-currently moaning with some pain but no pressors required
Updated multiple family members including and daughter as well as sister and brother
Goals of care and end-of-life discussions ensued
and daughter wish only comfort, discontinuation of antibiotics, hospice evaluation-return to [facility] with hospice 'very poor quality of life for quite some time'
We will respect their wishes
Primary team will be notified-comfort medications will be provided, antibiotics will be discontinued and hospice will be consulted
[2024-04-02] MEDS: MORPHINE SULFATE 1 MG IV (13:26)
[2024-04-02] MEDS: KCL IV (13:32)
--- NOTE | 2024-04-02 13:46 | CM ---
CM following re: discharge planning.
Reviewed pt's chart, met with pt. pt's spouse, daughter, brother, career development facilitator at bedside.
Pt is an 83 year old male, admitted with primary dx of DKA
Per spouse, pt has been a LTC resident at [facility] for a few years, requires total care, has been diagnosed with Dementia 7 years ago, has 2 supportive daughters.
Hospice care consult noted. Pt's family aware and they requested hospice. A referral to hospice made.
D/C plan: hospice care with hospice, probably inpatient hospice.
CM will follow with discharge plan updates as hospitalization progresses
--- NOTE | 2024-04-02 13:49 | HOSPNOTE ---
Spoke with family and they are in agreement with hospice care and the philosophy. The plan is comfort measures, see how he does overnight and then admit inpatient hospice tomorrow. Attending elias and IRVIN.
--- NOTE | 2024-04-02 14:00 | PTCARENOTE ---
Family @ bedside, decision made to move towards comfort/hospice. Dr. Carlos made aware and to bedside for goals of care discussion w family this afternoon. S/P discussion further orders received to initiated comfort measures. IVF and insulin gtt
d/c'd and patient medicated w PRNs per nonverbal scales- see AUG. Pt. repositioned per protocol. Family @ bedside, emotional support provided. Pt.'s family's coke oven patcher to bedside this afternoon; coke oven patcher gave pt last rites yesterday per family;
[employer] manager aware. Safe environment maintained.
[2024-04-02] MEDS: NSS (PRESERVATIVE FREE) 0.5 ML IV ×2 (15:14→22:42)
[2024-04-02] MEDS: MORPHINE SULFATE 2 MG IV ×4 (15:14→22:25)
[2024-04-02] MEDS: ATIVAN 1 MG IV ×2 (15:14→22:41)
[2024-04-02] MEDS: ROBINUL 0.2 MG IV (19:44)
[2024-04-03] MEDS: MORPHINE SULFATE 2 MG IV ×3 (00:14→04:25)
--- NOTE | 2024-04-03 08:00 | PTCARENOTE ---
PCT found that pt was no longer breathing. This RN in to assess pt, Dr Lopez made aware. Pt pronounced at 0800. TEDDY made aware.
--- NOTE | 2024-04-03 08:31 | W.PN.DEATH ---
Pronouncement of
-
Called to see patient to pronounce.
No spontaneous heart tones or respirations noted.
Patient not responsive to verbal stimuli.
Patient is pronounced .
Time of : 08:00
Date of : 04/03/24
Cause of : Sepsis from UTI
Family Notified: Yes
--- NOTE | 2024-04-03 08:32 | W.DCSUMMARY ---
Discharge Summary
Discharge Data
Date of Admission: 04/01/24
Date of Discharge: 04/03/24
-
Pending Results: No
Hospital Course
Primary diagnosis:
Sepsis
Urinary tract infection with Escherichia coli
Possible diabetic ketoacidosis
Secondary diagnosis:
Dementia
Hospital course:
83-year-old gentleman with history of dementia living in a local [facility]ci presented with sepsis from E. coli UTI. He was also in possible DKA. He was also having change in mental status secondary to acute toxic metabolic encephalopathy. Was
very hypernatremic. He was pretty sick with a sepsis needing ICU admission and interventions. He was doing poorly. Family told that he was deteriorating from his dementia which is end-stage. He was pretty much immobile at this point. At this
point for him they want goals of care to be comfort and he was transferred to comfort measures and today peacefully at 8 AM.
Consultants on board:
[employer] Dr. Carlos
Discharge Plan
-
Referrals:
Lucio Dietrich DO [Family Provider] -
Prescriptions:
No Action
Januvia 50 MG tablet
100 mg PO DAILY
atorvastatin 10 MG tablet
20 mg PO QPM
primidone 250 MG tablet
250 mg PO BID
metformin 1,000 MG tablet
1,000 mg PO BID
acetaminophen [Tylenol] 325 mg Tablet
650 mg PO HS
acetaminophen [Tylenol] 325 mg Tablet
650 mg PO Q4HPRN PRN (Reason: mild pain)
polyethylene glycol 3350 [Miralax] 17 gram Powder In Packet
17 g PO DAILY
sennosides-docusate sodium [Senna Plus] 8.6-50 mg Tablet
2 tab-cap PO HS
melatonin 3 mg Tablet
6 mg PO HS
fexofenadine [Clarisa] 180 mg Tablet
180 mg PO DAILY
magnesium hydroxide [Milk of Magnesia] 400 mg/5 mL Suspension
2,400 mg PO HSPRN PRN (Reason: constipation)
bisacodyl [Dulcolax (bisacodyl)] 10 mg Suppository
10 mg IL [id number] PRN (Reason: if no bm aftr mom)
nitrofurantoin monohyd/m-cryst [Macrobid] 100 mg Capsule
100 mg PO BID
Patient Comments:
starting 04/01/24 take for 7 days
insulin glargine [Lantus Solostar U-100 Insulin] 100 unit/mL (3 mL) Insulin Pen
5 unit SC HS
PreserVision AREDS 2,148 mcg-113 mg-45 mg-17.4mg Tablet
1 tab PO BID
Discharge Date and Time
Print Language: BULGARIAN
--- NOTE | 2024-04-03 10:11 | CHAP ---
Emotional and spiritual support provided for Mr. Wu' after his . Stories shared. She let me know that he had received Sacrament of the Sick from a family friend who is a radial drill operator for plastic a few days ago.
== END 2024-04-03 11:55 | disposition expired | DRG 871 ==
LOC: 2 NORTH 21:21
PROVIDERS: Nurse Practitioner Family; Registered Nurse; ADMITTING PHYSICIAN Internal Medicine; ATTENDING PHYSICIAN Internal Medicine; EMERGENCY PHYSICIAN Emergency Medicine; FAMILY PHYSICIAN Student in an Organized Health Care Education/Training Program; OTHER PHYSICIAN Internal Medicine Critical Care Medicine
DX: A41.51 Sepsis due to Escherichia coli [E. coli] (principal); E11.10 Type 2 diabetes mellitus with ketoacidosis without coma; G92.8 Other toxic encephalopathy; R65.21 Severe sepsis with septic shock; E87.0 Hyperosmolality and hypernatremia; N39.0 Urinary tract infection, site not specified; Z16.11 Resistance to penicillins; R56.9 Unspecified convulsions; D64.9 Anemia, unspecified; Z66 Do not resuscitate; F03.90 Unspecified dementia, unspecified severity, without behavioral disturbance, psychotic disturbance, mood disturbance, and anxiety; I10 Essential (primary) hypertension; E87.5 Hyperkalemia; D75.839 Thrombocytosis, unspecified; E78.00 Pure hypercholesterolemia, unspecified; Z79.4 Long term (current) use of insulin; Z79.84 Long term (current) use of oral hypoglycemic drugs; Z79.899 Other long term (current) drug therapy; Z87.891 Personal history of nicotine dependence; Z90.89 Acquired absence of other organs; Z88.2 Allergy status to sulfonamides
CPT/HCPCS: 71045; 80048; 80053; 81003; 81015; 82010; 82962; 83036; 83605; 83735; 84100; 85025; 85027; 87040; 87070; 87077; 87086; 87186; 93005; 96361; 96374; 99285